=== PATIENT | female | born 1990 | race Caucasian/White ===

== ENCOUNTER → 2020-06-25 11:12 | Outpatient (CLI) | payer OTHER, SELFPAY ==
[2020-06-25 11:42] LABS: Add Manual Diff / Slide Review NO; Basophils Absolute Auto 0 /uL (0-100); Basophils Percent Auto 0.2 % (0-2); Eosinophils Absolute Auto 0 /uL (0-450); Eosinophils Percent Auto 0.4 % (2-4); Hematocrit 36.3 % (36-46); Hemoglobin 12.8 g/dL (12.0-16.0); Lymphocytes Absolute Auto 1600 /uL (1100-4500); Lymphocytes Percent Auto 16.7 % (25-40); Mean Corpuscular HGB Conc 35.2 % (30-36); Mean Corpuscular Hemoglobin 33.7 PG (26-34); Mean Corpuscular Volume 95.7 fL (80-100); Monocytes Absolute Auto 500 /uL (0-900); Monocytes Percent Auto 5.7 % (3-14); Neutrophils Absolute Auto 7400 /uL (1500-7000); Platelet Count 230 X10^3/uL (150-400); White Blood Cell Count 9.7 X10^3/uL (4.5-11.0)
[2020-06-25 12:27] LABS: Hepatitis B Surface Antigen NEGATIVE s/c (NEGATIVE); Rubella Antibody IgG 11.9 IU/mL (>15)
[2020-06-25 12:42] LABS: HIV 1 & 2 Ab/Ag 4th Gen Combo NEGATIVE (NEGATIVE); Hep C Virus Ab w/Reflex Quant NEGATIVE s/c (NEGATIVE)
[2020-06-26 08:09] LABS: RPR Screen Non Reactive (Non Reactive); Varicella IgG Antibody 624 index (Immune >165)
== END ==
PROVIDERS: Referring Provider Obstetrics & Gynecology; Visit Provider Obstetrics & Gynecology
DX: Z34.01 Encounter for supervision of normal first pregnancy, first trimester (principal)
CPT/HCPCS: 36415; 80055; 86787; 86803; 86850; 86900; 86901; 87389

== ENCOUNTER → 2020-07-23 09:53 | Outpatient (CLI) | payer OTHER, SELFPAY ==
[2020-07-25 19:40] LABS: AFP, Serum 40.3 ng/mL (.); Calc Gestational Age Ultrasound (.); Estriol, Free 0.92 ng/mL (.); Inhibin A, Dimeric 435.11 pg/mL (.); Inhibin A, MoM 2.85 (.); Maternal Ethnicity Caucasian (.); Maternal Weight 166 lbs (.); Number of Fetuses No (.); OSBR Risk 1 IN 6916 (.); Results Report (.); Test Results *Screen Positive* (.); hCG, MoM 2.87 (.); hCG, Serum 94011 mIU/mL (.)
== END ==
PROVIDERS: Referring Provider Obstetrics & Gynecology; Visit Provider Obstetrics & Gynecology
DX: Z34.02 Encounter for supervision of normal first pregnancy, second trimester (principal); Z36.0 Encounter for antenatal screening for chromosomal anomalies; Z3A.16 16 weeks gestation of pregnancy
CPT/HCPCS: 36415; 82105; 82677; 84702; 86336

== ENCOUNTER → 2020-10-01 12:14 | Outpatient (CLI) | payer OTHER, SELFPAY ==
[2020-10-01 14:07] LABS: Hematocrit 33.5 % (36-46); Hemoglobin 11.5 g/dL (12.0-16.0)
[2020-10-01 14:58] LABS: GTT (PREG) 1 Hour PP 50gm Dose 104 mg/dL (76-139)
== END ==
PROVIDERS: Referring Provider Obstetrics & Gynecology; Visit Provider Obstetrics & Gynecology
DX: Z34.02 Encounter for supervision of normal first pregnancy, second trimester (principal); Z3A.26 26 weeks gestation of pregnancy
CPT/HCPCS: 36415; 82950; 85014; 85018

== ENCOUNTER 2020-10-15 19:23 | Outpatient (CLI) | payer OTHER, SELFPAY ==
--- NOTE | 2020-10-15 20:30 | P.TNLD_ITS ---
Visit Information Visit Information Date of evaluation: 10/15/20 Primary OB Provider: Tara Oswald On-call OB Provider: Nikkie Thakur Reason for Evaluation: Yes other Comments/Additional reasons for admission: 29YO @ [id number] here for evaluation of decreased FM. No cramping or VB. Routine care w/ /FMA. [facility] Medical History Anxiety (~2005) Chicken pox (~1996) Fibroids (~2017) Hemorrhoid (~2012) HSV-1 infection Viable Surgical History Anesthesia H/O adenoidectomy (~1997) History of appendectomy (~02/2010) History of tonsillectomy (~1997) S/P ACL repair (~11/2010) Family History Father History of heart disease Hypertension Hyperlipidemia Myocardial infarction Former smoker Hx of heart artery stent Grandfather Colon cancer History of heart disease Grandmother Lung cancer Diabetes mellitus Former smoker Grandfather Lung cancer Former smoker Mother No problems noted. Grandmother Hx of cholecystectomy Family/Other Liver failure Alcohol abuse Social History marital status: number of children: 0 household members: spouse lives independently: Yes caregiver/support person: No housing: house pets and animals: Yes (2 dog, 1 cat. Aware of precautions.) education level: college (BS Criminal Justice ) occupational status: employed ([employer] for [employer] industry.) current occupational exposures/hazards: Yes (She is avoiding all the adhesives now that she is .) special constance needs: No seatbelt use: always Smoking Status: Former smoker (Quit 2014.) Tobacco: How many years used: 5 second hand exposure: No alcohol intake: former (Socially on weekends, 2-3 drinks. ) substance use type: does not use and marijuana (Remote past, not recently.) during the past year weight has: remained stable well-balanced diet: daily or most days daily servings fruits/ve or more times/day caffeine: Yes (Occasional soda. No coffee. ) Type(s) of exercise: walking and other ([place]ug[place] pre-. ) frequency: 3-4 times per week duration: 30-45 minutes/day Review of Systems Review of Systems ROS: Yes All systems reviewed with the patient and are negative except as otherwise documented Exam Vital Signs (past 8 hours): BP 134/73, HR 73bpm, RR 18/min, T 36.4C Termporal Other: Gravid, no tenderness, Posiition not assessed. FM auscultated by RN when placing monitors. Evaluation Evaluation Baseline heart rate: 140 Variability: Moderate (11-25) monitor accelerations: Present monitor decelerations: Absent Contraction Frequency (minutes): 0 Category of Tracing: Reactive Comments: CE deferred Diagnosis, Plan/Disposition Plan/Disposition Plan: A: decreased FM- resolved Patient was reassured by FM felt and heard during monitoring. Reassurance of normal given. Discharged to home w/ routine precautions and f/u w/ as previously scheduled. OB Disposition: home
== END 2020-10-15 20:45 | disposition home or self-care (01) ==
LOC: LABOR 19:26 → OB 10-16 07:34
PROVIDERS: Referring Provider Nurse Practitioner Obstetrics & Gynecology; Visit Provider Nurse Practitioner Obstetrics & Gynecology
DX: O36.8130 Decreased fetal movements, third trimester, not applicable or unspecified (principal); Z3A.28 28 weeks gestation of pregnancy
CPT/HCPCS: 59025; G0378; G0379

== ENCOUNTER 2020-10-22 15:03 | Outpatient (CLI) | payer OTHER, SELFPAY | END 2020-10-22 16:00 | disposition home or self-care (01) | LOC: LABOR 15:25 → OB 10-23 16:21 | PROVIDERS: Referring Provider Obstetrics & Gynecology; Visit Provider Obstetrics & Gynecology | DX: O34.13 Maternal care for benign tumor of corpus uteri, third trimester (principal); O43.893 Other placental disorders, third trimester; Z3A.29 29 weeks gestation of pregnancy | CPT/HCPCS: 59025; G0378; G0379 ==

== ENCOUNTER 2020-10-28 15:18 | Observation (INO) | payer OTHER, SELFPAY ==
--- NOTE | 2020-10-29 06:50 | PM.OBTRLD ---
Visit Information Visit Information Date of evaluation: 10/28/20 Primary OB Provider: Tara Oswald Reason for Evaluation: Yes non-stress test non-stress test reason: other (Grade 2 placenta at 29 weeks) [facility] Medical History Anxiety (~2005) Chicken pox (~1996) Fibroids (~2017) Hemorrhoid (~2012) HSV-1 infection Viable Surgical History Anesthesia H/O adenoidectomy (~1997) History of appendectomy (~02/2010) History of tonsillectomy (~1997) S/P ACL repair (~11/2010) Family History Father History of heart disease Hypertension Hyperlipidemia Myocardial infarction Former smoker Hx of heart artery stent Grandfather Colon cancer History of heart disease Grandmother Lung cancer Diabetes mellitus Former smoker Grandfather Lung cancer Former smoker Mother No problems noted. Grandmother Hx of cholecystectomy Family/Other Liver failure Alcohol abuse Social History marital status: number of children: 0 household members: spouse lives independently: Yes caregiver/support person: No housing: house pets and animals: Yes (2 dog, 1 cat. 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 ) substance use type: does not use and marijuana (Remote past, not recently.) during the past year weight has: remained stable well-balanced diet: daily or most days daily servings fruits/ve or more times/day caffeine: Yes (Occasional soda. No coffee. ) Type(s) of exercise: walking and other ([place]ug[place] pre-. ) frequency: 3-4 times per week duration: 30-45 minutes/day Evaluation Evaluation Baseline heart rate: 140 Variability: Average (6-10) monitor accelerations: Present Monitor Decelerations: Absent Category of Tracing: Reactive Diagnosis, Plan/Disposition Plan/Disposition Plan: Assessment: 30 wks gestation with Grade 2 placenta Reactive NST Plan: F/U 1 weeks [facility]'s OB Disposition: home
== END 2020-10-28 15:48 | disposition home or self-care (01) ==
PROVIDERS: Admitting Provider Obstetrics & Gynecology; Referring Provider Obstetrics & Gynecology; Visit Provider Obstetrics & Gynecology
DX: O43.93 Unspecified placental disorder, third trimester (principal); Z3A.30 30 weeks gestation of pregnancy
CPT/HCPCS: 59025; G0378; G0379

== ENCOUNTER 2020-10-30 17:00 | Outpatient (CLI) | payer OTHER, SELFPAY ==
--- NOTE | 2020-10-30 17:43 | P.TNLD_ITS ---
Visit Information Visit Information Date of evaluation: 10/30/20 Primary OB Provider: Tara Oswald Reason for Evaluation: Yes non-stress test non-stress test reason: decreased movement PFSH Medical History Anxiety (~2005) Chicken pox (~1996) Fibroids (~2017) Hemorrhoid (~2012) HSV-1 infection Viable Surgical History Anesthesia H/O adenoidectomy (~1997) History of appendectomy (~02/2010) History of tonsillectomy (~1997) S/P ACL repair (~11/2010) Family History Father History of heart disease Hypertension Hyperlipidemia Myocardial infarction Former smoker Hx of heart artery stent Grandfather Colon cancer History of heart disease Grandmother Lung cancer Diabetes mellitus Former smoker Grandfather Lung cancer Former smoker Mother No problems noted. Grandmother Hx of cholecystectomy Family/Other Liver failure Alcohol abuse Social History marital status: number of children: 0 household members: spouse lives independently: Yes caregiver/support person: No housing: house pets and animals: Yes (2 dog, 1 cat. 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 ) substance use type: does not use and marijuana (Remote past, not recently.) during the past year weight has: remained stable well-balanced diet: daily or most days daily servings fruits/ve or more times/day caffeine: Yes (Occasional soda. No coffee. ) Type(s) of exercise: walking and other ([place]ug[place] pre-. ) frequency: 3-4 times per week duration: 30-45 minutes/day Exam Vital Signs (past 8 hours): Generally: Pt lying on right side, tearful, in no acute distress Evaluation Evaluation Baseline heart rate: 125 Variability: Moderate (11-25) monitor accelerations: Present Monitor Decelerations: Absent Category of Tracing: Reactive Diagnosis, Plan/Disposition Plan/Disposition Plan: Assessment: 31 weeks gestation, grade 2 placents Reactive NST Plan: [facility]'s F/U 5 days for MAGAN/NST OB Disposition: home
== END 2020-10-30 17:44 | disposition home or self-care (01) ==
LOC: LABOR 17:19 → OB 10-31 08:25
PROVIDERS: Referring Provider Obstetrics & Gynecology; Visit Provider Obstetrics & Gynecology
DX: O36.8130 Decreased fetal movements, third trimester, not applicable or unspecified (principal); Z3A.31 31 weeks gestation of pregnancy
CPT/HCPCS: 59025; G0378; G0379

== ENCOUNTER 2020-11-04 14:21 | Outpatient (CLI) | payer OTHER, SELFPAY ==
--- NOTE | 2020-11-05 15:14 | PM.OBTRLD ---
Visit Information Visit Information Date of evaluation: 11/04/20 Primary OB Provider: Tara Oswald Reason for Evaluation: Yes non-stress test non-stress test reason: other (Grade 3 placenta) [facility] Medical History Anxiety (~2005) Chicken pox (~1996) Fibroids (~2017) Hemorrhoid (~2012) HSV-1 infection Viable Surgical History Anesthesia H/O adenoidectomy (~1997) History of appendectomy (~02/2010) History of tonsillectomy (~1997) S/P ACL repair (~11/2010) Family History Father History of heart disease Hypertension Hyperlipidemia Myocardial infarction Former smoker Hx of heart artery stent Grandfather Colon cancer History of heart disease Grandmother Lung cancer Diabetes mellitus Former smoker Grandfather Lung cancer Former smoker Mother No problems noted. Grandmother Hx of cholecystectomy Family/Other Liver failure Alcohol abuse Social History marital status: number of children: 0 household members: spouse lives independently: Yes caregiver/support person: No housing: house pets and animals: Yes (2 dog, 1 cat. 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 ) substance use type: does not use and marijuana (Remote past, not recently.) during the past year weight has: remained stable well-balanced diet: daily or most days daily servings fruits/ve or more times/day caffeine: Yes (Occasional soda. No coffee. ) Type(s) of exercise: walking and other ([place] pre-. ) frequency: 3-4 times per week duration: 30-45 minutes/day Evaluation Evaluation Baseline heart rate: 135 Variability: Moderate (11-25) monitor accelerations: Present Monitor Decelerations: Absent Category of Tracing: Reactive Diagnosis, Plan/Disposition Plan/Disposition Plan: Assessment: 31 weeks gestation Grade 3 placenta Plan: F/U 1 wk NST/MAGAN/BPP weekly [facility]'s discussed OB Disposition: home
== END 2020-11-04 15:05 | disposition home or self-care (01) ==
LOC: LABOR 14:35 → OB 11-05 07:11
PROVIDERS: Referring Provider Obstetrics & Gynecology; Visit Provider Obstetrics & Gynecology
DX: O43.213 Placenta accreta, third trimester (principal); Z3A.31 31 weeks gestation of pregnancy
CPT/HCPCS: 59025; G0378; G0379

== ENCOUNTER 2020-11-11 14:15 | Outpatient (CLI) | payer OTHER, SELFPAY | END 2020-11-11 15:00 | disposition home or self-care (01) | LOC: LABOR 15:22 → OB 11-14 10:36 | PROVIDERS: Referring Provider Obstetrics & Gynecology; Visit Provider Obstetrics & Gynecology | DX: O34.13 Maternal care for benign tumor of corpus uteri, third trimester (principal); Z3A.32 32 weeks gestation of pregnancy | CPT/HCPCS: 59025; G0378; G0379 ==

== ENCOUNTER 2020-11-14 14:23 | Outpatient (CLI) | payer OTHER, SELFPAY ==
--- NOTE | 2020-11-14 15:18 | P.TNLD_ITS ---
Visit Information Visit Information Date of evaluation: 11/14/20 Primary OB Provider: Tara Oswald Reason for Evaluation: Yes non-stress test non-stress test reason: other (Aged placenta, Grade 3 at 33 wks.) [facility] Medical History Anxiety (~2005) Chicken pox (~1996) Fibroids (~2017) Hemorrhoid (~2012) HSV-1 infection Viable Surgical History Anesthesia H/O adenoidectomy (~1997) History of appendectomy (~02/2010) History of tonsillectomy (~1997) S/P ACL repair (~11/2010) Family History Father History of heart disease Hypertension Hyperlipidemia Myocardial infarction Former smoker Hx of heart artery stent Grandfather Colon cancer History of heart disease Grandmother Lung cancer Diabetes mellitus Former smoker Grandfather Lung cancer Former smoker Mother No problems noted. Grandmother Hx of cholecystectomy Family/Other Liver failure Alcohol abuse Social History marital status: number of children: 0 household members: spouse lives independently: Yes caregiver/support person: No housing: house pets and animals: Yes (2 dog, 1 cat. 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 ) substance use type: does not use and marijuana (Remote past, not recently.) during the past year weight has: remained stable well-balanced diet: daily or most days daily servings fruits/ve or more times/day caffeine: Yes (Occasional soda. No coffee. ) Type(s) of exercise: walking and other ([place] pre-. ) frequency: 3-4 times per week duration: 30-45 minutes/day Evaluation Evaluation Baseline heart rate: 135 Variability: Moderate (11-25) monitor accelerations: Present Monitor Decelerations: Absent Category of Tracing: Reactive Diagnosis, Plan/Disposition Plan/Disposition Plan: Assessment: 33 weeks gestation Grade 3 placenta Reactive NST Plan: F/U 4 days for ob appt and NST OB Disposition: home
== END 2020-11-14 15:30 | disposition home or self-care (01) ==
LOC: LABOR 14:32 → OB 11-15 09:30
PROVIDERS: Referring Provider Obstetrics & Gynecology; Visit Provider Obstetrics & Gynecology
DX: O43.893 Other placental disorders, third trimester (principal); Z3A.33 33 weeks gestation of pregnancy
CPT/HCPCS: 59025; G0378; G0379

== ENCOUNTER 2020-11-18 13:42 | Outpatient (CLI) | payer OTHER, SELFPAY ==
--- NOTE | 2020-11-18 13:53 | DI.US.S_ITS ---
PROCEDURE: US OB BIOPHYSICAL PROFILE INDICATIONS: FIBROID OUTSIDE/PRIOR DATING DATA: Last menstrual period (LMP): March 11, 2020. LMP-based estimated date of delivery (NAHOMI): December 26, 2020. First dating scan (date and location): May 29, 2020. Estimated date of delivery (NAHOMI) from first dating scan: January 02, 2021. TECHNIQUE: Real-time scanning was performed of the fetus for biophysical profile, with image documentation. Color and pulse Doppler interrogation was also performed of the umbilical artery near its insertion into the placenta. Endovaginal scanning: Performed COMPARISON: None. FINDINGS: General: A single living intrauterine gestation is present. Presentation: Vertex Placenta: Placental position is anterior, without previa. Amniotic fluid index: 18.2 cm, normal range is 5-24 cm. heart rate: 131 beats per minute. Maternal cervical canal: Not well seen. Estimated gestational age from initial scan: 33 weeks 4 days. Biophysical profile: Tone: 2 points. Movement: 2 points. Respiration: 2 points. Largest pocket of fluid: 2 points. Umbilical artery Doppler: Not evaluated IMPRESSION: 1. Single living intrauterine in vertex position. [place] of 2. Normal amniotic fluid index. 3. Biophysical profile score 8/8. Dictated by: Albertina Leung MD, PhD on 11/18/2020 at 15:55 Approved by: Albertina Leung MD, PhD on 11/18/2020 at 15:56
--- NOTE | 2020-11-19 07:22 | P.TNLD_ITS ---
Visit Information Visit Information Date of evaluation: 11/18/20 Primary OB Provider: Tara Oswald Reason for Evaluation: Yes non-stress test non-stress test reason: other (Grade 3 placenta at 33 weeks) [facility] Medical History Anxiety (~2005) Chicken pox (~1996) Fibroids (~2017) Hemorrhoid (~2012) HSV-1 infection Viable Surgical History Anesthesia H/O adenoidectomy (~1997) History of appendectomy (~02/2010) History of tonsillectomy (~1997) S/P ACL repair (~11/2010) Family History Father History of heart disease Hypertension Hyperlipidemia Myocardial infarction Former smoker Hx of heart artery stent Grandfather Colon cancer History of heart disease Grandmother Lung cancer Diabetes mellitus Former smoker Grandfather Lung cancer Former smoker Mother No problems noted. Grandmother Hx of cholecystectomy Family/Other Liver failure Alcohol abuse Social History marital status: number of children: 0 household members: spouse lives independently: Yes caregiver/support person: No housing: house pets and animals: Yes (2 dog, 1 cat. 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 ) substance use type: does not use and marijuana (Remote past, not recently.) during the past year weight has: remained stable well-balanced diet: daily or most days daily servings fruits/ve or more times/day caffeine: Yes (Occasional soda. No coffee. ) Type(s) of exercise: walking and other ([place] pre-. ) frequency: 3-4 times per week duration: 30-45 minutes/day Evaluation Evaluation Baseline heart rate: 130 Variability: Moderate (11-25) monitor accelerations: Present Monitor Decelerations: Absent Category of Tracing: Reactive Diagnosis, Plan/Disposition Plan/Disposition Plan: 33 weeks gestation Grade 3 placenta Reactive NST OB Disposition: home
== END 2020-11-18 15:25 | disposition home or self-care (01) ==
LOC: LABOR 14:38 → OB 11-19 06:45
PROVIDERS: Referring Provider Obstetrics & Gynecology; Visit Provider Obstetrics & Gynecology
DX: O43.93 Unspecified placental disorder, third trimester (principal); Z3A.33 33 weeks gestation of pregnancy
CPT/HCPCS: 59025; 76819; G0378; G0379

== ENCOUNTER 2020-11-21 14:01 | Outpatient (CLI) | payer OTHER, SELFPAY | END 2020-11-21 14:30 | disposition home or self-care (01) | LOC: LABOR 14:25 → OB 11-22 07:12 | PROVIDERS: Referring Provider Obstetrics & Gynecology; Visit Provider Obstetrics & Gynecology | DX: O34.13 Maternal care for benign tumor of corpus uteri, third trimester (principal); Z3A.34 34 weeks gestation of pregnancy | CPT/HCPCS: 59025; G0378; G0379 ==

== ENCOUNTER 2020-11-25 09:58 | Outpatient (CLI) | payer OTHER, SELFPAY ==
--- NOTE | 2020-11-26 11:29 | PM.OBTRLD ---
Visit Information Visit Information Date of evaluation: 11/25/20 Primary OB Provider: Tara Oswald Reason for Evaluation: Yes non-stress test non-stress test reason: other (Grade 3 placenta, fibroid) [facility] Medical History Anxiety (~2005) Chicken pox (~1996) Fibroids (~2017) Hemorrhoid (~2012) HSV-1 infection Viable Surgical History Anesthesia H/O adenoidectomy (~1997) History of appendectomy (~02/2010) History of tonsillectomy (~1997) S/P ACL repair (~11/2010) Family History Father History of heart disease Hypertension Hyperlipidemia Myocardial infarction Former smoker Hx of heart artery stent Grandfather Colon cancer History of heart disease Grandmother Lung cancer Diabetes mellitus Former smoker Grandfather Lung cancer Former smoker Mother No problems noted. Grandmother Hx of cholecystectomy Family/Other Liver failure Alcohol abuse Social History marital status: number of children: 0 household members: spouse lives independently: Yes caregiver/support person: No housing: house pets and animals: Yes (2 dog, 1 cat. 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 ) substance use type: does not use and marijuana (Remote past, not recently.) during the past year weight has: remained stable well-balanced diet: daily or most days daily servings fruits/ve or more times/day caffeine: Yes (Occasional soda. No coffee. ) Type(s) of exercise: walking and other ([place] pre-. ) frequency: 3-4 times per week duration: 30-45 minutes/day Evaluation Evaluation Baseline heart rate: 145 Variability: Moderate (11-25) monitor accelerations: Present Monitor Decelerations: Absent Category of Tracing: Reactive Diagnosis, Plan/Disposition Plan/Disposition Plan: Assessment: 29-year-old 1 para 0 at 33 weeks gestation with a grade 3 placenta Reactive nonstress test Plan: Discharge to home Follow-up in 4 days kick counts reviewed OB Disposition: home
--- NOTE | 2020-11-26 11:30 | PM.OBTRLD ---
Visit Information Visit Information Date of evaluation: 11/21/20 Primary OB Provider: jhonatan Reason for Evaluation: Yes non-stress test non-stress test reason: other (Grade 3 placenta, fibroid) [facility] Medical History Anxiety (~2005) Chicken pox (~1996) Fibroids (~2017) Hemorrhoid (~2012) HSV-1 infection Viable Surgical History Anesthesia H/O adenoidectomy (~1997) History of appendectomy (~02/2010) History of tonsillectomy (~1997) S/P ACL repair (~11/2010) Family History Father History of heart disease Hypertension Hyperlipidemia Myocardial infarction Former smoker Hx of heart artery stent Grandfather Colon cancer History of heart disease Grandmother Lung cancer Diabetes mellitus Former smoker Grandfather Lung cancer Former smoker Mother No problems noted. Grandmother Hx of cholecystectomy Family/Other Liver failure Alcohol abuse Social History marital status: number of children: 0 household members: spouse lives independently: Yes caregiver/support person: No housing: house pets and animals: Yes (2 dog, 1 cat. 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 ) substance use type: does not use and marijuana (Remote past, not recently.) during the past year weight has: remained stable well-balanced diet: daily or most days daily servings fruits/ve or more times/day caffeine: Yes (Occasional soda. No coffee. ) Type(s) of exercise: walking and other ([place]ug[place] pre-. ) frequency: 3-4 times per week duration: 30-45 minutes/day Evaluation Evaluation Baseline heart rate: 135 Variability: Moderate (11-25) monitor accelerations: Present Monitor Decelerations: Absent Category of Tracing: Reactive Diagnosis, Plan/Disposition Plan/Disposition Plan: Assessment: 29-year-old 1 para 0 at 34 and 4 7th weeks gestation Grade 3 placenta Reactive nonstress test Plan: kick counts reviewed Follow-up in 4 days OB Disposition: home
== END 2020-11-25 10:45 | disposition home or self-care (01) ==
LOC: LABOR 10:27 → OB 11-26 07:22
PROVIDERS: Referring Provider Obstetrics & Gynecology; Visit Provider Obstetrics & Gynecology
DX: O34.13 Maternal care for benign tumor of corpus uteri, third trimester (principal); O43.893 Other placental disorders, third trimester; Z3A.34 34 weeks gestation of pregnancy
CPT/HCPCS: 59025; G0378; G0379

== ENCOUNTER 2020-11-29 08:58 | Outpatient (CLI) | payer OTHER, SELFPAY | END 2020-11-29 09:55 | disposition home or self-care (01) | LOC: LABOR 09:22 → OB 12-03 07:44 | PROVIDERS: Referring Provider Obstetrics & Gynecology; Visit Provider Obstetrics & Gynecology | DX: O34.13 Maternal care for benign tumor of corpus uteri, third trimester (principal); Z3A.35 35 weeks gestation of pregnancy | CPT/HCPCS: 59025; G0378; G0379 ==

== ENCOUNTER 2020-12-03 12:06 | Outpatient (CLI) | payer OTHER, SELFPAY | END 2020-12-03 13:00 | disposition home or self-care (01) | LOC: OB 12-04 07:37 | PROVIDERS: Referring Provider Obstetrics & Gynecology; Visit Provider Obstetrics & Gynecology | DX: O34.13 Maternal care for benign tumor of corpus uteri, third trimester (principal); Z3A.35 35 weeks gestation of pregnancy | CPT/HCPCS: 59025; 87653; G0378; G0379 ==

== ENCOUNTER → 2020-12-03 13:10 | Outpatient (CLI) | payer OTHER, SELFPAY ==
[2020-12-04 17:06] LABS: Strep Grp B PCR NEG for Grp B Strep
== END ==
PROVIDERS: Visit Provider Obstetrics & Gynecology
DX: Z34.03 Encounter for supervision of normal first pregnancy, third trimester (principal); Z3A.35 35 weeks gestation of pregnancy
CPT/HCPCS: 87653

== ENCOUNTER 2020-12-06 09:09 | Outpatient (CLI) | payer OTHER, SELFPAY ==
--- NOTE | 2020-12-06 09:32 | DI.US.S_ITS ---
PROCEDURE: US OB BIOPHYSICAL PROFILE INDICATIONS: grade 3 placenta OUTSIDE/PRIOR DATING DATA: Last menstrual period (LMP): 03/21/2020 . LMP-based estimated date of delivery (NAHOMI): 12/26/2020. First dating scan (date and location): 05/29/2020, physician's office . Estimated date of delivery (NAHOMI) from first dating scan: 01/02/2021. TECHNIQUE: Real-time scanning was performed of the fetus for biophysical profile, with image documentation. Color and pulse Doppler interrogation was also performed of the umbilical artery near its insertion into the placenta. COMPARISON: [facility], , OB BIOPHYSICAL PROFILE, 11/18/2020, 14:46. FINDINGS: General: A single living intrauterine gestation is present. Presentation: Cephalic. Placenta: Placental position is anterior , without previa. Amniotic fluid index: 14.8 cm, normal range is 5-24 cm. heart rate: 143 beats per minute. Maternal cervical canal: Not seen at late stage of Estimated gestational age from initial scan: 36 weeks 1 day . Biophysical profile: Tone: 2 points. Movement: 2 points. Respiration: 2 points. Largest pocket of fluid: 2 points. IMPRESSION: 1. Living late 3rd trimester intrauterine . 2. Normal MAGAN. 3. Ultrasound biophysical profile is 88 Dictated by: Vivek Paiz M.D. on 12/06/2020 at 12:34 Approved by: Vivek Paiz M.D. on 12/06/2020 at 12:37
== END 2020-12-06 10:45 | disposition home or self-care (01) ==
LOC: LABOR 09:41 → OB 12-09 09:48
PROVIDERS: Referring Provider Obstetrics & Gynecology; Visit Provider Obstetrics & Gynecology
DX: O34.13 Maternal care for benign tumor of corpus uteri, third trimester (principal); O43.93 Unspecified placental disorder, third trimester; O35.9XX0 Maternal care for (suspected) fetal abnormality and damage, unspecified, not applicable or unspecified; Z3A.36 36 weeks gestation of pregnancy
CPT/HCPCS: 59025; 76819; G0378; G0379

== ENCOUNTER 2020-12-09 08:08 | Outpatient (CLI) | payer OTHER, SELFPAY | END 2020-12-09 08:23 | disposition home or self-care (01) | LOC: OB 12-10 09:38 | PROVIDERS: Referring Provider Obstetrics & Gynecology; Visit Provider Obstetrics & Gynecology | DX: O43.893 Other placental disorders, third trimester (principal); Z3A.36 36 weeks gestation of pregnancy | CPT/HCPCS: 59025; G0378; G0379 ==

== ENCOUNTER 2020-12-12 09:16 | Observation (INO) | payer OTHER, SELFPAY ==
--- NOTE | 2020-12-12 09:43 | DI.US.S_ITS ---
PROCEDURE: US OB BIOPHYSICAL PROFILE INDICATIONS: GRADE II PLACENTA AT 29 WEEKS OUTSIDE/PRIOR DATING DATA: Last menstrual period (LMP): 03/21/2020 . LMP-based estimated date of delivery (NAHOMI): 12/26/2020 . First dating scan (date and location): 05/29/2020, physician's office . Estimated date of delivery (NAHOMI) from first dating scan: 01/02/2021 . TECHNIQUE: Real-time scanning was performed of the fetus for biophysical profile, with image documentation. Color and pulse Doppler interrogation was also performed of the umbilical artery near its insertion into the placenta. COMPARISON: [facility], OB BIOPHYSICAL PROFILE, 12/06/2020, 9:25. FINDINGS: General: A single living intrauterine gestation is present. Presentation: Vertex. Placenta: Placental position is anterior , without previa. Placenta is grade 3. Amniotic fluid index: 10.6 cm, normal range is 5-24 cm. heart rate: 131 beats per minute. Maternal cervical canal: Not well seen at late stage of Estimated gestational age from initial scan: 37 weeks 0 days . Biophysical profile: Tone: 2 points. Movement: 2 points. Respiration: 2 points. Largest pocket of fluid: 2 points. IMPRESSION: 1. Living late 3rd trimester intrauterine . 2. Biophysical profile is 8/8. 3. Normal MAGAN. 4. Grade 3 placenta Dictated by: Vivek Paiz M.D. on 12/12/2020 at 10:50 Approved by: Vivek Paiz M.D. on 12/12/2020 at 10:53
== END 2020-12-12 11:50 | disposition home or self-care (01) ==
PROVIDERS: Admitting Provider Obstetrics & Gynecology; Referring Provider Obstetrics & Gynecology; Visit Provider Obstetrics & Gynecology
DX: O43.893 Other placental disorders, third trimester (principal); O35.9XX0 Maternal care for (suspected) fetal abnormality and damage, unspecified, not applicable or unspecified; Z3A.37 37 weeks gestation of pregnancy
CPT/HCPCS: 59025; 76819; G0378; G0379

== ENCOUNTER 2020-12-15 18:32 | Inpatient (IN) | payer OTHER, SELFPAY ==
[2020-12-15] MEDS: DINOPROSTONE VAG (CERVIDIL) 10 MG VAG (19:54)
[2020-12-15 20:12] LABS: Add Manual Diff / Slide Review NO; Basophils Absolute Auto 0 /uL (0-100); Basophils Percent Auto 0.2 % (0-2); Eosinophils Absolute Auto 100 /uL (0-450); Eosinophils Percent Auto 1.6 % (2-4); Hematocrit 35.2 % (36-46); Hemoglobin 12.1 g/dL (12.0-16.0); Lymphocytes Absolute Auto 1900 /uL (1100-4500); Lymphocytes Percent Auto 20.7 % (25-40); Mean Corpuscular HGB Conc 34.4 % (30-36); Mean Corpuscular Hemoglobin 34.2 PG (26-34); Mean Corpuscular Volume 99.3 fL (80-100); Monocytes Absolute Auto 600 /uL (0-900); Neutrophils Absolute Auto 6500 /uL (1500-7000); Neutrophils Percent Auto 70.5 % (50-75); Platelet Count 173 X10^3/uL (150-400); Red Blood Cell Count 3.55 X10^6/uL (4.0-5.2); Red Cell Distribution Width 12.9 % (11.6-14.8); White Blood Cell Count 9.2 X10^3/uL (4.5-11.0)
[2020-12-15 20:43] VITALS: BP 118/72
[2020-12-15 21:08] LABS: COVID19 - ADMIT (NP swab/PCR) Negative (Negative)
[2020-12-15] MEDS: ZOLPIDEM 5 MG TABLET PO (23:32)
[2020-12-16] MEDS: miSOPROStoL 25 MCG TABLET VAG ×2 (09:39→13:21)
[2020-12-16] MEDS: DINOPROSTONE VAG (CERVIDIL) 10 MG VAG (21:06)
[2020-12-16] MEDS: ZOLPIDEM 5 MG TABLET 10 MG PO (21:08)
--- NOTE | 2020-12-16 21:26 | PM.OBHP.1 ---
OB HPI Date/Time Date of admission: 12/15/20 Date Patient Seen: 12/16/20 Time Patient Seen: 07:45 History of Present Condition Chief complaint: observation : 1 Para: 0 Estimated Date of Delivery: 01/02/21 Estimated Gestational Age (weeks): 37+4 Narrative: Seth Villegas is a 30 year old female at 37+4 weeks gestations s/p Cervidil last evening to ripen cervix. Pt to be induced due to Grade 3 placenta Indications Indication for induction OB: other (Grade 3 placenta) History of Present care: good care, initiated at week # (8), number of visits (14) and pounds weight gain (45) Dating criteria: LMP confirmed by 1st trimester US Ultrasounds: normal 1st trimester US, normal mid trimester US and abnormal US findings (At 28 wks found to have grade 2 placenta, advanced to grade 3 at 32 weeks) Obstetrical complications: other (Placenta advanced for gestational age) Medical complications: none Preadmission Labs Blood type: A (+) positive -: Antibody screen: negative, GBS status: negative, HBsAG: negative, HIV: negative and RPR/VDLR: negative -: Rubella: not immune and Varicella: immune HCT: 35.2 HCAB: negative Quad screen: Normal Urine: Negative 1 hr GTT: 104 Evaluation Evaluation Baseline heart rate: 135 Variability: Moderate (11-25) monitor accelerations: Present Monitor Decelerations: Absent Contraction Frequency (minutes): 5 Uterine Contraction Intensity: Mild Status: Category l Cervical dilation (cm): 0 Cervical effacement (%): 80 station: -1 Laboratory results: Laboratory Tests 12/15/20 12/15/20 12/15/20 19:00 19:00 19:00 WBC 9.2 RBC 3.55 L Hgb 12.1 Hct 35.2 L MCV 99.3 MCH 34.2 H MCHC 34.4 RDW 12.9 Plt Count 173 Neut % (Auto) 70.5 Lymph % (Auto) 20.7 L [place] % (Auto) 7.0 Eos % (Auto) 1.6 L Baso % (Auto) 0.2 Neut # (Auto) 6500 Lymph # (Auto) 1900 [place] # (Auto) 600 Eos # (Auto) 100 Baso # (Auto) 0 SARS-CoV-2 (PCR) Negative Blood Type A Positive Antibody Screen Negative [facility] Medical History Anxiety (~2005) Chicken pox (~1996) Fibroids (~2017) Hemorrhoid (~2012) HSV-1 infection Viable Surgical History Anesthesia H/O adenoidectomy (~1997) History of appendectomy (~02/2010) History of tonsillectomy (~1997) S/P ACL repair (~11/2010) Family History Father History of heart disease Hypertension Hyperlipidemia Myocardial infarction Former smoker Hx of heart artery stent Grandfather Colon cancer History of heart disease Grandmother Lung cancer Diabetes mellitus Former smoker Grandfather Lung cancer Former smoker Mother No problems noted. Grandmother Hx of cholecystectomy Family/Other Liver failure Alcohol abuse Social History marital status: number of children: 0 household members: spouse lives independently: Yes caregiver/support person: No housing: house pets and animals: Yes (2 dog, 1 cat. Aware of precautions.) education level: college (BS Criminal Justice ) occupational status: employed ([employer] for [employer] industry.) current occupational exposures/hazards: Yes (She is avoiding all the adhesives now that she is .) special constance needs: No seatbelt use: always Smoking Status: Former smoker Tobacco: How many years used: 5 second hand exposure: No alcohol intake: former (Socially on weekends, 2-3 drinks. ) substance use type: does not use and marijuana (Remote past, not recently.) during the past year weight has: remained stable well-balanced diet: daily or most days daily servings fruits/ve or more times/day caffeine: Yes (Occasional soda. No coffee. ) Type(s) of exercise: walking and other ([place] pre-. ) frequency: 3-4 times per week duration: 30-45 minutes/day Meds Home Medications and Allergies Home Medications Medication Instructions Recorded Confirmed Type doxylamine succinate 25 mg tablet 25 mg PO BEDTIME PRN 05/23/20 12/09/20 History prenat.vits,tabitha,[id number]-nfvad 1 tab PO DAILY 05/23/20 12/09/20 History pyridoxine (vitamin B6) 25 mg 25 mg PO ONCE 05/23/20 12/09/20 History tablet hydrocortisone acetate 25 mg 25 mg MA BID-QID PRN #24 ea 08/27/20 12/09/20 Rx rectal suppository hydroxyzine HCl 25 mg tablet 25 mg PO BID PRN #20 tab 10/30/20 12/09/20 Rx citalopram 10 mg tablet See Rx Instructions .ROUTE 11/29/20 12/09/20 Rx .COMPLEX #90 tab Allergies Allergy/AdvReac Type Severity Reaction Status Date / Time No Known Drug Allergies Allergy Unverified 12/09/20 08:33 Exam Vital Signs (past 8 hours): Generally: No acute distress Lungs: CTA bilat CV: RRR FH: 40 cm EFW: 7# Ext: No edema, 1+ DTR Objective Labs Result Diagrams: 12/15/20 19:00 Assessment and Plan Assessment and Plan Assessment and Plan narrative: Assessment: 30 year old at 37+4 wks gestation with a placenta of advanced age compared to gestational age Fibroid uterus Plan: Misoprostol every 4 hours until cervix favorable or able to place a Ray Time Spent with Patient Total time spent with greater than 50% in coordination of care (as documented) at patient's floor/unit and/or counseling patient:: 15-24 minutes
--- NOTE | 2020-12-16 21:35 | PM.OBPNLAB ---
Date/Time Date Patient Seen: 12/16/20 Time Patient Seen: 19:45 Pain Control Pain control: tolerating well Pelvic Exam Dilation (cm): 1 Effacement (%): 80 station: 0 Amniotic membrane status: Intact Contractions Contractions on admission: none Monitor mode: External Contraction frequency (min): 4 Contraction duration (min): 1 Contraction pattern: Irregular Contraction intensity: Mild Status status: Category l Heart Rate Baseline: 135 Monitor Accelerations: Present Monitor Decelerations: Absent Monitor Variability: Moderate Assessment and Plan Assessment: other (Unfavorable cervix) Plan: other (Cervidil overnight) Comments: Attempted to place a Ray in the cervix, but unsuccessful.
[2020-12-17] MEDS: LACTATED RINGERS 1,000 ML 100 ML IV (08:20)
[2020-12-17] MEDS: OXYTOCIN PREMIX 30 UNIT/500 ML PLAST..BAG IV (08:21)
--- NOTE | 2020-12-17 12:32 | PM.AN.REGBLK ---
Regional Block Pre-procedure Procedure: Continuous Lumbar Epidural for L&D Attending OB provider: Tara Oswald PMH/ROS narrative: term labor induction for grade 3 placenta. Hx: No personal or family history of anesthesia problems. ASA Class: II Labs: Hct 35.2 % (36-46) L 12/15/20 19:00 Plt Count 173 X10^3/uL (150-400) 12/15/20 19:00 Medications: Current Medications Generic Name Dose Route Start Last Admin Trade Name Freq PRN Reason Stop Dose Admin Acetaminophen 650 mg 12/15/20 19:35 Acetaminophen 325 Mg Tablet PO Q4HR PRN Fever/Mild Pain (1-3) Calcium Carbonate 500 mg 12/15/20 19:35 Calcium Carbonate 500 Mg Tab PO Q2H PRN Dyspepsia Diphenhydramine HCl 25 mg 12/17/20 11:25 Diphenhydramine 50 Mg/Ml Vial IV Q10M PRN Pruritis Lactated Ringer's 1,000 mls @ 100 mls/hr 12/16/20 08:00 12/17/20 08:20 Lactated Ringers IV 100 mls/hr CONT MILI Administration Oxytocin/Lactated Ringer's 30 unit in 500 mls @ 3 mls/hr 12/16/20 08:00 12/17/20 08:21 Oxytocin Premix IV 3 milliunit/min TITRATE MILI 3 mls/hr Administration Protocol 3 MILLIUNIT/MIN FENT 2MCG/ML BUPIV 0.125% EPI 200 mcg in 100 mls @ 6 mls/hr 12/17/20 11:30 Fentanyl/Bupiv/Ns 2mcg/Ml - 0.125% EPIDURAL CONT MILI Misoprostol 25 mcg 12/16/20 09:00 12/16/20 13:21 Misoprostol 25 Mcg Tablet VAG 25 mcg Q4HR MILI Administration Zolpidem Tartrate 5 mg 12/15/20 19:35 12/15/20 23:32 Zolpidem 5 Mg Tablet PO 5 mg BEDTIME PRN Administration Sleep Zolpidem Tartrate 10 mg 12/16/20 20:56 12/16/20 21:08 Zolpidem 5 Mg Tablet PO 10 mg BEDTIME PRN Administration Sleep Allergies: Allergies Allergy/AdvReac Type Severity Reaction Status Date / Time No Known Drug Allergies Allergy Unverified 12/09/20 08:33 Procedure Insertion date: 12/17/20 Insertion time: 11:44 Prep/Local: betadine x3 Patient position: sitting Needle: 18 gauge Hustead (CSE: 27g Pencan through Hustead, clear CSF, 1mL 0.25% bupiv) Loss of resistance with: saline JOAN at (cm): 5 Catheter placed at SKIN (cm): 11 Catheter in SPACE (cm): 6 Insertion: No CSF, No Blood, No Paresthesia with insertion, No Paresthesia with injection and No Test dose reaction Initial Medications TEST DOSE time: 11:46 TEST DOSE: 1.5% lidocaine with epinephrine 1:200k (mL): 3 BOLUS DOSE time: 11:55 BOLUS DOSE (mL): 3 BOLUS DOSE med: other (infusate) Infusion INFUSION: 0.125% bupivacaine and with fentanyl 2 mcg/mL Initial rate (mL/hr): 6 Subsequent interventions: 13:40 50mcg fentanyl, 5mL 2% chloroprocaine for L-side discomfort 09/11 14:55 50mcg fentanyl, 5mL 0.25% bupivacaine, L-side discomfort, increased gtt to 10mL/h Post-procedure Anesthesia time START: 11:32 Anesthesia time END: 18:23 Post-procedure Anesthesia Assessment: Yes CV function: HR/BP stable, Yes Resp function: RR/sat/airway adequate, Yes Mental status appropriate and No Anesthesia complications
--- NOTE | 2020-12-17 13:09 | PM.OBPNLAB ---
Date/Time Date Patient Seen: 12/17/20 Time Patient Seen: 09:30 Pain Control Pain control: tolerating well Pelvic Exam Dilation (cm): 2 Effacement (%): 80 station: 0 Amniotic membrane status: Intact Contractions Monitor mode: External Pitocin rate (mU/min): 2 Contraction frequency (min): 4 Contraction duration (min): 4 Contraction pattern: Irregular Contraction intensity: Mild Status status: Category l Heart Rate Baseline: 140 Monitor Accelerations: Present Monitor Decelerations: Absent Monitor Variability: Moderate Assessment and Plan Assessment: induction ongoing Plan: other (Artificial rupture of membranes with copious clear amniotic fluid.)
--- NOTE | 2020-12-17 19:09 | PM.OBPRVD ---
Events: Labor Induction and Other (Placental age advanced for gestational age) Labor & Delivery Intrapartal Events: None Cervical ripening method: per Cervidil protocol Induction method: per pitocin protocol Delivery augmentation: rupture of membranes Delivery monitor: external FHT and external uterine Route of delivery: Episiotomy description: None L&D Laceration Description: Vaginal - 1st Degree Delivery repair: chromic Estimated blood loss (mL): 150 Anesthesia Type: Epidural Complications: None Narrative: Patient complete and pushed for 90 minutes. At 6:23 p.m., a live male delivered spontaneously in the RICHELLE presentation. No nuchal cord. The remainder of the body delivered without difficulty and was placed on mom's abdomen. When the cord stopped pulsing, the cord was double clamped and cut. Pitocin was given in the IV fluids. Cord bloods were obtained. The placenta delivered intact with a three-vessel cord at 6:40 p.m.. The fundus was massaged to firm and found to be at U +2. A first-degree vaginal laceration was noted on the left side and repaired with 2 0 chromic in a running interlocking fashion. Hemostasis was achieved. Apgars 9 at 1 minute and 9 at 5 minutes. Estimated blood loss 150 cc. . Epidural analgesia. Mom and stable to recovery. Baby 1: Infant gender: Male Presentation: vertex Position: Left Occiput Anterior Placenta delivery description: Spontaneous Cord Vessel Description: 3 Vessels and Clamped/Cut score (1 min): 9 score (5 min): 9 Plan for aftercare: Routine care
[2020-12-18] MEDS: IBUPROFEN 600 MG TABLET PO ×4 (03:14→21:30)
[2020-12-18 06:12] LABS: Hematocrit 32.5 % (36-46); Hemoglobin 11.2 g/dL (12.0-16.0)
[2020-12-18] MEDS: CITALOPRAM 10 MG TABLET PO (09:51)
[2020-12-18] MEDS: DOCUSATE 100 MG CAPSULE PO (09:52)
--- NOTE | 2020-12-18 14:17 | P.PNOB_ITS ---
Subjective - OB Subjective Patient comments: no complaints [place] baby status: doing well and nursing well [place] feeding status: exclusively breast feeding Date Patient Seen: 12/18/20 Time Patient Seen: 14:18 Interval history: Patient is a 30-year-old 1 para 1 day # 1 status post spontaneous vaginal delivery after induction of labor due to a grade 3 placenta. Exam Vital Signs (past 8 hours): Generally: Patient is sitting up in bed, no acute distress Fundus: Firm at U +4. Fibroid palpable. Extremities: Negative Homans, no edema Objective Labs Result Diagrams: 12/18/20 05:45 Labs: Laboratory Results - last 24 hr 12/18/20 05:45 Hgb 11.2 L Hct 32.5 L Assessment & Plan Plan day: 1 plan OB: routine care Comments: Probable discharge tomorrow morning Time Spent With Patient Time: Total time spent is greater than 50% in coordination of care (as documented) at patient's floor/unit and/or counseling patient: Time with patient: 15-24 minutes
[2020-12-19] MEDS: ACETAMINOPHEN 325 MG TABLET 650 MG PO (05:33)
[2020-12-19] MEDS: IBUPROFEN 600 MG TABLET PO ×2 (05:34→11:16)
[2020-12-19] MEDS: DOCUSATE 100 MG CAPSULE PO (09:40)
[2020-12-19] MEDS: CITALOPRAM 10 MG TABLET PO (09:40)
[2020-12-19 10:03] VITALS: BP 123/65; PULSE 79; RESP 16; TEMP 36.9
--- NOTE | 2021-01-16 16:45 | P.DS_ITS ---
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 She was being ripened and induced due to grade 3 placenta at 37 weeks and oligohydramnios. She received Cytotec overnight. On the morning of December 16, 2020 Pitocin was started. She had little change throughout the day. The Pitocin was stopped. She received Cervidil overnight. A Ray bulb placement was unsuccessful. On the morning of December 17, 2020 she was restarted on Pitocin. Artificial rupture membranes was performed. She received an epidural for pain management. She had a spontaneous vaginal delivery with first-degree laceration. Her course was unremarkable. She was discharged home on day # 2. Peripartum Data Delivery Method: Natural Vaginal Laceration Description: Vaginal - 1st Degree Episiotomy description: None Procedures: Cytotec cervical ripening Cervidil cervical ripening Pitocin induction of labor Artificial rupture membranes Spontaneous vaginal delivery First-degree laceration repair complications: none [place] 1: Gender: Male Disposition of : home Status at Discharge Cognitive/behavioral status at discharge: oriented Functional status at discharge: independent ambulation Overall status at discharge: patient is progressing back to baseline Time Spent with Patient Time attestation: Total time spent providing and/or coordinating discharge services: Time spent: Less than 30 minutes Objective Labs Result Diagrams: 12/18/20 05:45 Exam Narrative Exam Narrative: Generally: Patient is sitting up in bed, no acute distress Fundus: Firm at U -2 Extremities: Trace edema, negative Homans Discharge Plan Discharge Plan Patient Disposition: Home Provider Discharge Comment: Call with fever, chills, or bleeding vaginally more than a pad in an hour Ibuprofen 600 mg every 6 hours as needed for cramping Tylenol 650 mg every 6 hours as needed Discharge orders & Medications Prescriptions: Continued hydrocortisone acetate [Anusol-HC] 25 mg suppository 25 mg NV BID-QID PRN (Reason: hemorrhoids) Qty: 24 RF: 1 hydroxyzine HCl 25 mg tablet 25 mg PO BID PRN (Reason: anxiety) Qty: 20 RF: 0 citalopram 10 mg tablet See Rx Instructions .ROUTE .COMPLEX Qty: 90 RF: 3 prenat.vits,tabitha,[id number] Tablet 1 tab PO DAILY RF: 0 Discontinued Unisom (doxylamine) 25 mg tablet 25 mg PO BEDTIME PRNRF: 0 pyridoxine (vitamin B6) 25 mg tablet 25 mg PO ONCE RF: 0 Follow up/Referrals: Tara Oswald MD [Physician] - (Your follow up appointment with Dr. Oswald is scheduled on January 28 @ 3:30pm.) Diet/Activity/Treatments Diet: Regular Skin/Wound/Dressing Care Report to your healthcare provider any signs of infection, such as:: chills, fever, increased pain and unusual drainage Visit Report/Discharge Packet Instructions: DI for Labor and Delivery, Vaginal Stand Alone Forms: Discharge: Care
== END 2020-12-19 11:54 | disposition home or self-care (01) | DRG 807 ==
PROVIDERS: Admitting Provider Obstetrics & Gynecology; Referring Provider Obstetrics & Gynecology; Visit Provider Obstetrics & Gynecology
DX: O41.03X0 Oligohydramnios, third trimester, not applicable or unspecified (principal); Z37.0 Single live birth; O43.893 Other placental disorders, third trimester; Z3A.37 37 weeks gestation of pregnancy; O70.0 First degree perineal laceration during delivery; O34.13 Maternal care for benign tumor of corpus uteri, third trimester; D25.9 Leiomyoma of uterus, unspecified; Z20.822 Contact with and (suspected) exposure to COVID-19
CPT/HCPCS: 01967; 36415; 59050; 59200; 59400; 85014; 85018; 85025; 86850; 86900; 86901; 87635; C9803; G0379; J2590; J3010